=== PATIENT | female | born 1930 | race Two or more races ===

== ENCOUNTER 2017-04-19 08:25 | Outpatient (CLI) | payer OTHER ==
[~2017-04-19 08:25] MED LIST: ADULT ASPIRIN81 MG; SYNTHROID88 MCG; [UNRECOGNIZED DRUG - OTHER]
== END 2017-04-19 08:36 | disposition home or self-care (01) ==
LOC: TOM 08:25
DX: R10.31 Right lower quadrant pain (principal); R10.12 Left upper quadrant pain; R10.32 Left lower quadrant pain

== ENCOUNTER 2018-10-18 09:35 | Day surgery (SDC) | payer OTHER ==
[~2018-10-18 09:35] MED LIST changes: +ZOCOR40 MG PO
[2018-10-18] MEDS ORDERED: TRAMADOL HCL50 MG PO (14:34)
[2018-10-18] MEDS ORDERED: TYLENOL EXTRA500 MG PO (14:34)
[2018-10-18] MEDS ORDERED: MIRALAX17 GM PO (14:34)
== END 2018-10-18 20:20 | disposition home or self-care (01) ==
LOC: CIR.AMB 09:35
DX: K40.91 Unilateral inguinal hernia, without obstruction or gangrene, recurrent (principal); K40.90 Unilateral inguinal hernia, without obstruction or gangrene, not specified as recurrent; K43.2 Incisional hernia without obstruction or gangrene

== ENCOUNTER → 2019-04-12 | Outpatient (CLI) | payer OTHER ==
[~2019-04-12] MED LIST changes: +MIRALAX17 GM PO; +TRAMADOL HCL50 MG PO; +TYLENOL EXTRA500 MG PO
== END | disposition home or self-care (01) ==
LOC: MRI 09:38
DX: H90.3 Sensorineural hearing loss, bilateral (principal)
CPT/HCPCS: 70553